=== PATIENT | male | born 1970 | race American Indian/Alaskan Native ===

== ENCOUNTER 2019-02-15 08:55 | Emergency (ER) | payer OTHER ==
--- NOTE | 2019-02-15 09:57 | XRay Report ---
LEFT SHOULDER, 3 VIEWS INDICATION: Pain after fall last night. COMPARISON: None. IMPRESSION: No acute osseous or soft tissue abnormality. Moderate osteoarthritic changes are iden tified at the acromioclavicular joint. Normal articulation at the glenohumeral joint. Signer Name: Giovanny Head Jr, MD Signed: 02/15/2019 9:53 AM Workstation Name: [id number]
--- NOTE | 2019-02-15 10:08 | Emergency Department Report ---
ED Back Pain/Injury HPI - General Chief Complaint: Shoulder Injury Stated Complaint: CAN'T LIFT LT ARM Time Seen by Provider: 02/15/19 09:35 Source: patient Limitations: No Limitations - History of Present Illness Initial Comments: PT comes to the ER after suffering a ground-level fall yesterday. He comes in complaining of left shoulder pain and inability to raise his left arm as well as a right index finger abrasion. She has taking nothing for his pain. He did clean his finger with soap and water. Patient describes the shoulder pain is just an aching. - Related Data Allergies Allergy/AdvReac Type Severity Reaction Status Date / Time No Known Allergies Allergy Unverified 02/15/19 08:56 ED Review of Systems ROS: Stated complaint: CAN'T LIFT LT ARM Other details as noted in HPI Comment: All other systems reviewed and negative ED Past Medical Hx - Past Medical History Medical history: no medical history Family history: no significant family history - Social History Smoking Status: Current Every Day Smoker ED Back Pain Physical Exam - Exam General: Vital signs noted. No distress. Alert and acting appropriately. WDWN patient in NAD VS per RN flow sheet Alert and oriented to person, place and time. S1-S2. No S3 or S4. No systolic or diastolic murmur. No JVD. No pitting edema. Lungs clear to auscultation bilaterally anteriorly and posteriorly. Abdomen soft nontender bowel soundsX4 Patient has full range of motion of the left wrist and shoulder. However, he is having difficulty raising his left shoulder. Patient is not in pain as you would see in a dislocation. There is no obvious deformity. There is no abrasions contusions or lacerations. He has a +2 brachial, radial and ulnar pulses. He has rapid capillary refill. Sensation is intact. Patient has an abrasion of his right index finger. The top layer of skin has denuded off. The wound is clean. Patient has full range of motion with rapid cap refill. Mood and affect appropriate. Back/Abdomen: No Abdominal Tenderness, No Perithoracic Tenderness, No Perilumbar Tenderness, No Sacroiliac Tenderness, No Flank Tenderness Neuro: Yes Normal Sensation, Yes Normal DTR's, Yes Normal Gait, No Motor Weakness ED Course Vital Signs 02/15/19 09:56 Temperature 97.5 F L Pulse Rate 60 Respiratory 20 Rate Blood Pressure 136/87 O2 Sat by Pulse 100 Oximetry Ed Back Pain Tests - Tests Tests: Normal X Rays ED Medical Decision Making - Radiology Data Radiology results: report reviewed, image reviewed - Medical Decision Making WOUND CARE TO R INDEX FINGER TDAP GIVEN SLING AND SWATH L ARM IMAGES REVIEWED WITH DR FIELDS RAD/ULNAR PULSE PLUS 2; RAPID CAP REFILL FULL ROM WRIST AND ELBOW WILL DC PT TO HOME WITH ORTHO FOLLOW UP DISCUSSED WITH PT THE NEED TO FOLLOW UP WITH ORTHO FOR HIS INJURY Vital Signs 02/15/19 09:56 Temperature 97.5 F L Pulse Rate 60 Respiratory 20 Rate Blood Pressure 136/87 O2 Sat by Pulse 100 Oximetry - Differential Diagnosis RO DISLOCATION/AC SEPERATION/FX HUMEROUS Critical care attestation.: If time is entered above; I have spent that time in minutes in the direct care of this critically ill patient, excluding procedure time. ED Disposition Clinical Impression: Shoulder pain, Finger abrasion, Fall Disposition: DC-01 TO HOME OR SELFCARE Is pt being admited?: No Does the pt Need Aspirin: No Condition: Stable Instructions: Shoulder Sprain (ED) Additional Instructions: SLING ALTERNATE ICE AND HEAT MOTRIN OR TYLENOL FOR THE PAIN REST NO LIFTING KEEP WOUND CLEAN AND DRY THE TISSUE WILL HEAL IN FROM THE INSIDE OUT KEEP COVERED DURING THE DAY FOLLOW UP WITH ORTHO TEMI REFERRAL BELOW Referrals: CASH HONG MD [Staff Physician] - 3-5 Days Forms: Work/School Release Form(ED) Time of Disposition: 10:17
[2019-02-15] MEDS ORDERED: IBUPROFEN PO ONE (10:11)
[2019-02-15] MEDS ORDERED: BOOSTRIX IM ONE (10:26)
[2019-02-15] MEDS ORDERED: THERMAZENE 50 GRAM TP ONE (10:30)
[2019-02-15 10:57] VITALS: BP 131/84
== END 2019-02-15 10:56 | disposition home or self-care (01) ==
LOC: ED 08:55
DX: S60.410A Abrasion of right index finger, initial encounter (principal); M25.512 Pain in left shoulder; W18.30XA Fall on same level, unspecified, initial encounter; Y93.89 Activity, other specified; Y92.89 Other specified places as the place of occurrence of the external cause; Y99.8 Other external cause status
CPT/HCPCS: 90471; 90715

== ENCOUNTER 2020-05-23 07:29 | Emergency (ER) | payer SELFPAY ==
--- NOTE | 2020-05-23 13:32 | Emergency Department Report ---
ED General Adult HPI - General Chief complaint: High BP Stated complaint: BODY PAIN/DIANA PUI?: No Time Seen by Provider: 05/23/20 12:58 Source: patient, RN notes reviewed Mode of arrival: Ambulatory Limitations: No Limitations - History of Present Illness Initial comments: The patient was evaluated in the emergency department for symptoms described in the history of present illness. He/she was evaluated in the context of the g lobal COVID-19 pandemic, which necessitated consideration that the patient might be at risk for infection with the virus that causes COVID-19. Institutional protocols and algorithms that pertain to the evaluation of patients at risk for COVID-19 are in a state of rapid change based on information released by regulatory bodies including the CDC and federal and state organizations. These policies and algorithms were followed during the patient's care in the emergency department. Please note that these policies, procedures and recommendations changed on a rapid basis. Mr. Santoyo is a 49-year-old gentleman. He is not known to myself previously. He does not have a primary care doctor. He believes he has a past medical history of hypertension, but is not quite sure what medication he takes, if any. He also has a history of recreational alcohol consumption. He presents to the ER with a number of complaints. The patient's first complaint is lower abdominal wall discomfort, after mec hanical fall. A few weeks ago, the patient had a mechanical fall from standing, "landing on my butt", and feels like he "pulled something", and his lower abdominal region. He is aching throbbing discomfort which is intermittent, does not radiate anywhere, increases with palpation and range of motion, and it decreases with rest. He has not taken any [id number] pain medication for this. He denies testicular pain, urinary symptoms, he thinks that he threw up yesterday, but otherwise, has not thrown up, denies diarrhea, denies hematemesis, and bright red blood per rectum. His next complaint is "shortness of breath." He reports this symptom for "a few weeks to a few months." It is not particularly exertional. It is intermittent. He denies DVT and pulmonary embolism risk factors. He sleeps in bed by himself. He might snore, but he is not certain. He does describe that sleep in general is not particularly restful. This shortness of breath is painless, and intermittent, and does not have exacerbating or relieving factors. Patient has been intermittently wearing a mask, and denies new changes to taste and smell, but reports chronic loss of taste and smell for "2 to 3 years." The patient also endorses intermittent chronic body aches, and frequent alcohol consumption, but he is not homicidal or suicidal. His symptoms do not acutely worsened or changed today, but "today was today to get checked out." -: week(s) Location: abdomen, left, right, lower extremity Quality: aching Consistency: intermittent Improves with: rest Worsens with: movement - Related Data Previous Rx's Medication Instructions Recorded Last Taken Type Acetaminophen [Non-Aspirin Extra 500 mg PO Q6HR PRN #30 tablet 05/23/20 Unknown Rx Strength] Ibuprofen [Motrin] 600 mg PO Q8H PRN #30 tablet 20 Unknown Rx Multivitamin with Folic Acid [Cvs 400 mcg PO QDAY #30 tablet 05/23/20 Unknown Rx One Daily Essential Tablet] chlordiazePOXIDE [Librium] 25 mg PO Q6H PRN #25 capsule 05/23/20 Unknown Rx Allergies Allergy/AdvReac Type Severity Reaction Status Date / Time No Known Allergies Allergy Unverified 02/15/19 08:56 ED Review of Systems ROS: Stated complaint: BODY PAIN/DIANA Other details as noted in HPI Constitutional: denies: fever Eyes: denies: eye discharge ENT: congestion Respiratory: shortness of breath Cardiovascular: denies: chest pain Gastrointestinal: abdominal pain, nausea. denies: hematemesis Genitourinary: denies: dysuria Musculoskeletal: arthralgia, myalgia Skin: denies: lesions Neurological: weakness Psychiatric: anxiety. denies: homicidal thoughts, suicidal thoughts ED Past Medical Hx - Past Medical History Previous Medical History?: Yes Hx Hypertension: Yes (out of b/p meds) - Surgical History Past Surgical History?: Yes Additional Surgical History: knee - Social History Smoking Status: Current Every Day Smoker Substance Use Type: Alcohol - Medications Home Medications: Home Medications Medication Instructions Recorded Confirmed Last Taken Type Acetaminophen [Non-Aspirin Extra 500 mg PO Q6HR PRN #30 tablet 20 Unknown Rx Strength] Ibuprofen [Motrin] 600 mg PO Q8H PRN #30 tablet 10/10/20 Unknown Rx Multivitamin with Folic Acid [Cvs 400 mcg PO QDAY #30 tablet 05/23/20 Unknown Rx One Daily Essential Tablet] chlordiazePOXIDE [Librium] 25 mg PO Q6H PRN #25 capsule 05/23/20 Unknown Rx ED Physical Exam - General Limitations: No Limitations General appearance: alert, in no apparent distress - Head Head exam: Present: atraumatic, normocephalic - Eye Eye exam: Present: normal appearance, EOMI. Absent: nystagmus - ENT ENT exam: Present: normal exam, normal orophraynx, mucous membranes dry, normal external ear exam, other (Minimal tongue fasciculations noted) - Neck Neck exam: Present: normal inspection, full ROM. Absent: tenderness, me ningismus - Respiratory Respiratory exam: Present: normal lung sounds bilaterally. Absent: respiratory distress, wheezes, rales, rhonchi, stridor - Cardiovascular Cardiovascular Exam: Present: regular rate, normal rhythm, normal heart sounds. Absent: bradycardia, tachycardia, irregular rhythm, systolic murmur, diastolic murmur, rubs, gallop - GI/Abdominal GI/Abdominal exam: Present: soft, normal bowel sounds. Absent: distended, tenderness, guarding, rebound, rigid, pulsatile mass - Rectal Rectal exam: Present: deferred - Extremities Exam Extremities exam: Present: normal inspection, other (2+ pulses noted in the bilateral upper and lower extremities. There is no palpable cord. negative Homans sign. Muscular compartments are soft. The pelvis is stable.). Absent: calf tenderness - Back Exam Back exam: Present: normal inspection, full ROM. Absent: tenderness, CVA tenderness (R), CVA tenderness (L), paraspinal tenderness, vertebral tenderness - Neurological Exam Neurological exam: Present: alert, oriented X3, normal gait, other (No facial droop. Tongue midline. Extraocular movements intact bilaterally. Facial sensation intact to light touch in V1, V2, V3 distribution bilaterally. 5 and a 5 strength in 4 extremities. Sensation intact to light touch in 4 extremities.). Absent: motor sensory deficit - Psychiatric Psychiatric exam: Present: anxious. Absent: homicidal ideation, suicidal ideation - Skin Skin exam: Present: warm, dry, intact, normal color. Absent: rash ED Course Vital Signs 05/23/20 05/23/20 05/23/20 07:39 13:38 13:45 Temperature 98.7 F Pulse Rate 84 68 Respiratory 20 19 Rate Blood Pressure 140/98 150/102 O2 Sat by Pulse 97 100 Oximetry 05/23/20 14:01 Temperature Pulse Rate 65 Respiratory 16 Rate Blood Pressure 150/102 O2 Sat by Pulse Oximetry - Reevaluation(s) Reevaluation #1: 05/23/20 14:52 Differential diagnosis, including but not limited to: Physical deconditioning, pneumonia, obstructive sleep apnea, abdominal wall muscle sprain/strain, electro lyte derangement, dehydration, alcohol dependence Assessment and plan: 49-year-old gentleman with multiple complaints. His physical exam is benign and unremarkable, he is not currently tachycardic, tachypneic or hypoxic, he denies DVT and pulmonary embolism risk factors and is low risk by Wells criteria. EKG unremarkable for acute findings, has some incidental nonemergent findings which can be followed up as an outpatient. X-ray of the chest negative for acute findings. Patient clinically sober at this time with a GCS of 15, minimal tongue fasciculations, not homicidal suicidal, not clinically intoxicated. In terms of his abdominal pain, This is most likely an abdominal wall sprain/strain. Rest, ice, compression, elevation, Tylenol and Motrin. In terms of the patient's shortness of breath, this can be followed up as an outpatient, this is been going on for a few weeks to a few months, he does not appear to be acutely decompensated, we talked about diet and lifestyle modifications, need to follow-up with an outpatient primary care doctor and/or sleep specialist for evaluation of potential obstructive sleep apnea. In terms of his alcohol dependence, he can be started on multivitamin, Librium taper as needed, follow-up with outpatient primary care and/or mental health. Reevaluation #2: 05/23/20 15:28 Laboratory studies unremarkable with the exception of significantly elevated blood alcohol level. Nursing team is able to get in touch with patient's sister, who is going to come by and pick him up and assume responsibility. 05/23/20 15:45 ED Medical Decision Making - Lab Data Result diagrams: 05/23/20 13:47 05/23/20 13:47 Vital Signs 05/23/20 05/23/20 05/23/20 07:39 13:38 13:45 Temperature 98.7 F Pulse Rate 84 68 Respiratory 20 19 Rate Blood Pressure 140/98 150/102 O2 Sat by Pulse 97 100 Oximetry 05/23/20 14:01 Temperature Pulse Rate 65 Respiratory 16 Rate Blood Pressure 150/102 O2 Sat by Pulse Oximetry Lab Results 05/23/20 Range/Units Unknown Urine Color Yellow (Yellow) Urine Turbidity Clear (Clear) Urine pH 7.0 (5.0-7.0) Ur Specific Nixon 1.016 (1.003-1.030) Urine Protein >500 (Negative) mg/dL Urine Glucose (UA) Neg (Negative) mg/dL Urine Ketones Neg (Negative) mg/dL Urine Blood Sm (Negative) Urine Nitrite Neg (Negative) Urine Bilirubin Neg (Negative) Urine Urobilinogen < 2.0 (<2.0) mg/dL Ur Leukocyte Esterase Neg (Negative) Urine WBC (Auto) < 1.0 (0.0-6.0) /HPF Urine RBC (Auto) 1.0 (0.0-6.0) /HPF U Epithel Cells (Auto) < 1.0 (0-13.0) /HPF Urine Mucus Few /HPF - EKG Data 05/23/20 14:48 Sinus rhythm, 67 bpm, normal axis, QTC 441 ms, borderline left ventricular hypertrophy, poor R wave progression. This EKG is abnormal. The EKG is not a STEMI. - Radiology Data Radiology results: report reviewed, image reviewed Print Report Referring Physician: KEANU CORREA Patient Name: ABIGAIL SANTOYO Date of : 1970 Sex: Male Report Date: 2020-05-23 Report Status: Finalized Findings [facility] [address] [place] [address] XRay Report Signed Patient: ABIGAIL SANTOYO MR#: [id number] 51 : 1970 Acct:[id number] Age/Sex: 49 / M ADM Date: 05/23/20 Loc: ED Attending Dr: Ordering Physician: KEANU CORREA MD Date of Service: 05/23/20 Procedure(s): XR chest routine 2V Accession Number(s): [id number] cc: KEANU CORREA MD Fluoro Time In Minutes: CHEST 2 VIEWS INDICATION / CLINICAL INFORMATION: dyspnea. COMPARISON: None available. FINDINGS: SUPPORT DEVICES: None. HEART / MEDIASTINUM: No significant abnormality. LUNGS / PLEURA: No significant pulmonary or pleural abnormality. No pneumothorax. ADDITIONAL FINDINGS: No significant additional findings. IMPRESSION: No acute cardiopulmonary abnormality. Signer Name: Cecilia Guzman MD Signed: 05/23/2020 2:29 PM W orkstation Name: [id number] Transcribed By: SS Dictated By: CECILIA GUZMAN Electronically Authenticated By: CECILIA GUZMAN Signed Date/Time: 05/23/201428 DD/ 27 TD/TT: Critical care attestation.: If time is entered above; I have spent that time in minutes in the direct care of this critically ill patient, excluding procedure time. ED Disposition Clinical Impression: Abdominal wall pain, History of dyspnea, General medical exam Alcohol dependence Qualifiers: Substance use status: uncomplicated Qualified Code(s): F10.20 - Alcohol dependence, uncomplicated Disposition: - TO HOME OR SELFCARE Is pt being admited?: No Does the pt Need Aspirin: No Condition: Stable Additional Instructions: We recommend that the patient exercise as tolerated, lose weight, avoid consumption of alcohol, avoid consumption of simple carbohydrates, eat plenty of fiber, vegetables and lean protein. Patient may take the prescribed pain medication as needed for abdominal wall pain, alternate ice packs and heat packs, and perform range of motion exercises as tolerated. We recommend that the patient follow-up with an outpatient primary care doctor within the next month. Patient may have obstructive sleep apnea, and in addition to pursuing the aforementioned recommendations for diet and lifestyle, he may benefit from an outpatient sleep study. The patient is recommended to follow-up with a primary care doctor or vegetable washer, such as Dr Mora within the next month, for sleep study e valuation. Patient may also follow-up with an outpatient primary care doctor, or mental health center, for long-term alcohol dependence, and for outpatient detox, if the patient so desires. Please return to the emergency room right away with new pain, worsening pain, migration of pain, projectile vomiting, change in mental status, confusion, inability to tolerate liquid feeds, homicidality, suicidality, new, worsened or different symptoms not present on the initial emergency room evaluation. Prescriptions: Multivitamin with Folic Acid [Cvs One Daily Essential Tablet] 400 mcg PO QDAY #30 tablet chlordiazePOXIDE [Librium] 25 mg PO Q6H PRN #25 capsule PRN Reason: Alcohol Withdrawal Ibuprofen [Motrin] 600 mg PO Q8H PRN #30 tablet PRN Reason: Pain Acetaminophen [Non-Aspirin Extra Strength] 500 mg PO Q6HR PRN #30 tablet PRN Reason: Pain , Severe (7-10) Referrals: PETER ADAM MD [Staff Physician] - 3-5 Days ZACK OMRA MD [Staff Physician] - 3-[address] [facility] [Outside] - 3-5 Days
[2020-05-23 14:13] LABS: Bilirubin,Urine NEG (Negative); Blood,Urine SM (Negative); Color,Urine Yellow (Yellow); Mucus,Urine FEW /HPF; Urobilinogen,Urine < 2.0 mg/dL (<2.0); WBC,Urine < 1.0 /HPF (0.0-6.0)
[2020-05-23 14:14] LABS: Protein,Urine >500 mg/dL (Negative)
--- NOTE | 2020-05-23 14:34 | XRay Report ---
CHEST 2 VIEWS INDICATION / CLINICAL INFORMATION: dyspnea. COMPARISON: None available. FINDINGS: SUPPORT DEVICES: None. HEART / MEDIASTINUM: No significant abnormality. LUNGS / PLEURA: No significant pulmonary or pleural abnormality. No pneumothorax. ADDITIONAL FINDINGS: No significant additional findings. IMPRESSION: No acute cardiopulmonary abnormality. Signer Name: Abraham Guzman MD Signed: 05/23/2020 2:29 PM Workstation Name: [id number]
[2020-05-23 14:52] LABS: Hematocrit 43.6 % (35.5-45.6); Hemoglobin 14.6 gm/dl (11.8-15.2); Mean Corpuscular HGB Conc 34 % (32-34); Mean Corpuscular Volume 94 fl (84-94); Platelet Count 225 K/mm3 (140-440); Red Blood Count 4.64 M/mm3 (3.65-5.03); Red Cell Distribution Width 15.3 % (13.2-15.2)
[2020-05-23 15:02] LABS: INR 0.98 (0.87-1.13)
[2020-05-23 15:03] LABS: Alanine Aminotransferase 59 units/L (7-56); Albumin 4.5 g/dL (3.9-5); BUN/Creatinine Ratio 9; Blood Urea Nitrogen 7 mg/dL (9-20); Hemolysis Index 3
[2020-05-23] MEDS ORDERED: IBUPROFEN 400 MG TAB PO ONE (15:25)
[2020-05-23] MEDS ORDERED: ACETAMINOPHEN 500 MG TAB PO ONE (15:25)
[2020-05-23] MEDS ORDERED: HALOPERIDOL LACTATE 5 MG/1 ML INJ IM PRN (15:29)
[2020-05-23] MEDS ORDERED: LORazepam 2 MG/ML VIAL IM PRN (15:29)
[2020-05-23] MEDS ORDERED: ACETAMINOPHEN 325 MG TAB PO PRN (15:29)
[2020-05-23 15:58] VITALS: BP 139/84
== END 2020-05-23 15:51 | disposition home or self-care (01) ==
LOC: ED 07:29
DX: F10.20 Alcohol dependence, uncomplicated (principal); R10.9 Unspecified abdominal pain; I10 Essential (primary) hypertension; F17.200 Nicotine dependence, unspecified, uncomplicated; Z98.890 Other specified postprocedural states; Z79.899 Other long term (current) drug therapy; Z87.09 Personal history of other diseases of the respiratory system; Z00.01 Encounter for general adult medical examination with abnormal findings
CPT/HCPCS: 36415; 71046; 80053; 80320; 81001; 82550; 83735; 85027; 85610; 93005; G0480